=== PATIENT | female | born 1950 | race Caucasian/White ===

== ENCOUNTER → 2017-06-23 | Outpatient (CLI) | payer OTHER | LOC: FIMAGING 08:56 | PROVIDERS: ATTEND Family Medicine | DX: Z12.31 Encounter for screening mammogram for malignant neoplasm of breast (principal) | CPT/HCPCS: G0202 ==

== ENCOUNTER 2017-11-16 07:28 | Observation (INO) | payer OTHER ==
--- NOTE | 2017-11-15 08:04 | GHP ---
[f rep st] PREOP HISTORY AND PHYSICAL DATE OF ADMISSION: 11/16/2017 ADMISSION DIAGNOSIS: Osteoarthritis, right knee. PLANNED PROCEDURE: Right total knee arthroplasty. HISTORY OF PRESENT ILLNESS: The patient is a 67-year-old female, who has had longstanding, slowly wo rsening, bilateral knee pain, right slightly worse than left with varus deformities. She has recentl y lost about 110 pounds and she has been managing the knee pain with conservative therapy, including physical therapy, exercise and viscosupplementation injections. They have failed to provide relief a nd decision has been made to proceed with a total knee arthroplasty. PRIOR MEDICAL HISTORY: Obesity, depression, thyroid problems. PRIOR SURGICAL HISTORY: None. MEDICATIONS: Aripiprazole 5 mg daily, carbamazepine extended release 400 mg q.12 hours, hydrochlorot hiazide, levothyroxine, topiramate, venlafaxine. ALLERGIES: No known drug allergies. SOCIAL HISTORY: Does not smoke. Does not drink alcohol. She lives alone here in town. REVIEW OF SYSTEMS: No shortness of breath or chest pain. Otherwise, review of systems are unremarka ble. PHYSICAL EXAMINATION: VITAL SIGNS: She is 5 feet 3 inches tall, weighs 228 pounds. Blood pressure is 142/86, heart rate 78, respiratory rate 14 on room air. Alert oriented x3. HEENT: Normocephalic , atraumatic. Extraocular muscles intact. NECK: Supple. There is no lymphadenopathy. No JVD. CH EST: Clear to auscultation. CARDIOVASCULAR: Regular rate and rhythm. ABDOMEN: Soft, nontender, n ondistended. EXTREMITIES: Focusing on the right leg. She does have a slight varus deformity, it is correctable. She lacks about 10 degrees of extension. Flexes to 120 degrees. Knee is otherwise st able to varus and valgus stress testing. Calf is soft, 1+ dorsalis pedis and posterior tibial pulses . Sensation to light touch is intact to the dorsum and plantar aspect of the foot. IMAGING: X-rays, 3 views of the knee, are reviewed. They show moderate to severe tricompartment deg enerative joint disease with varus alignment. ASSESSMENT: Moderate to severe osteoarthritis, right knee with varus alignment. PLAN: I recommend proceeding with a total knee arthroplasty. The risks and benefits including posto perative infection, blood clots, stiffness and need for revision surgery in the future were all discu ssed. She understands these risks and wished to proceed. We will plan on surgery Thursday. /[id number]/MODL
[2017-11-16] MEDS ORDERED: LR 1,000 ML IV ONE (08:23)
--- NOTE | 2017-11-16 10:08 | PDHPUP ---
History & Physical Update H&P update statement: This history and physical update is based on an assessment of the patient which was completed after admission or registration (within 24 hours), but prior to the surgery/procedure. H&P update: H&P reviewed & patient examined, no change in patient's condition since H&P completed
[2017-11-16] MEDS ORDERED: THROMBIN (BOVINE) 5,000 UNIT VIAL TP ONE (10:24)
[2017-11-16] MEDS ORDERED: CALCIUM CHLORIDE 1 GM/10 ML INJ ONE (10:24)
[2017-11-16] MEDS ORDERED: ceFAZolin 1 GM/5 ML SYR ONE (10:24)
[2017-11-16] MEDS ORDERED: MIDAZOLAM 2 MG/2 ML VIAL IVP ONE (10:25)
--- NOTE | 2017-11-16 10:26 | PDANEPAE ---
ANE History of Present Illness Patient presents for R TKA ANE Past Medical History - Cardiovascular History Hx Hypertension: No Hx Arrhythmias: No Hx Chest Pain: No Hx Coronary Artery / Peripheral Vascular Disease: No Hx CHF / Valvular Disease: No Hx Palpitations: No - Pulmonary History Hx COPD: No Hx Asthma/Reactive Airway Disease: No Hx Recent Upper Respiratory Infection: No Hx Oxygen in Use at Home: No Hx Sleep Apnea: No Sleep Apnea Screening Result - Last Documented: Negative - Neurologic History Hx Cerebrovascular Accident: No Hx Seizures: Yes Hx Dementia: No Neurologic History Comment: hx of simple complex seizure disorder ~1997. Seizures s/p craniotomy. - Endocrine History Hx Diabetes: No Hypothyroid: Yes Endocrine History Comment: hypothyroid -well managed - Renal History Hx Renal Disorders: No - Liver History Hx Hepatic Disorders: No - Neurological & Psychiatric Hx Hx Neurological and Psychiatric Disorders: Yes Neurological / Psychiatric History Comment: depression- well managed - Cancer History Hx Cancer: No - Congenital Disorder History Hx Congenital Disorders: No - GI History Hx Gastrointestinal Disorders: No - Other Health History Other Health History: OA -bilat knees -R knee "bone on bone". on HCTZ for water retetion - Chronic Pain History Chronic Pain: Yes (R knee) - Surgical History Prior Surgeries: craniotomy -cyst removal. ella HAYS Review of Systems Review of Systems: - Exercise capacity METS (RN): 4 METS ANE Patient History - Allergies Allergies/Adverse Reactions: calcium carbonate [From Aspirin Regimen Stephen/Calcium] Allergy (Intermediate, Verified 10/26/17 13:59) "speediness" Penicillins Allergy (Intermediate, Verified 10/26/17 14:00) swelling - Home Medications Home medications: home medication list seen and reviewed Home Medications: ARIPiprazole [Abilify 5 mg (*)] 5 mg PO DAILY 10/26/17 [Last Taken 11/15/17] Ascorbic Acid [Vitamin C 500 mg (*)] 1,000 mg PO DAILY 10/26/17 [Last Taken 03/27] Aspirin [Aspirin 81mg (*)] 81 mg PO DAILY 10/26/17 [Last Taken 11/15/17] Cholecalciferol Vit D3 [Vitamin D3 2000 units tab (OTC)] 15,000 units PO DAILY 10/26/17 [Last Taken 11/15/17] Herbals/Supplements -Info Only 1 ea PO DAILY 10/26/17 [Last Taken 11/15/17] Hydrochlorothiazide [HCTZ (*)] 25 mg PO DAILY 10/26/17 [Last Taken 11/15/17] Levothyroxine [Synthroid 125 mcg (*)] 125 mcg PO DAILY06 10/26/17 [Last Taken ] [place]-3 Fatty Acids [Fish Oil 1000 mg (*)] 2,000 mg PO DAILY 10/26/17 [Last Taken 11/15/17] Topiramate [Topamax 100MG (*)] 100 mg PO DAILY 10/26/17 [Last Taken 11/15/17] Topiramate [Topamax 25MG (*)] 50 mg PO HS 10/26/17 [Last Taken 11/15/17] Venlafaxine Xr [Effexor Xr] 150 mg PO BID 10/26/17 [Last Taken 11/15/17] Vitamin B Complex/Folic Acid [B-Complex Tablet] 0.4 mg PO DAILY 10/26/17 [Last Taken 11/15/17] carBAMazepine ER [TEGretol XR] 400 mg PO BID 10/26/17 [Last Taken 11/15/17] - NPO status NPO Status: no food or drink >8 hours NPO Since - Liquids (Date): 11/15/17 NPO Since - Liquids (Time): 23:30 NPO Since - Solids (Date): 11/15/17 NPO Since - Solids (Time): 20:30 - Smoking Hx Smoking Status: Never smoked ANE Labs/Vital Signs - Vital Signs Blood Pressure: 160/94 Heart Rate: 84 Respiratory Rate: 18 O2 Sat (%): 93 Height: 160.02 cm Weight: 100.698 kg ANE Physical Exam - Airway Neck exam: FROM Mallampati Score: Class 2 Mouth exam: small mouth opening - Pulmonary Pulmonary: no respiratory distress - Cardiovascular Cardiovascular: regular rate and rhythym - ASA Status ASA Status: II ANE Anesthesia Plan Anesthesia Plan: spinal Regional Anesthesia: single shot NB (RBA discussed)
[2017-11-16] MEDS ORDERED: fentaNYL 100 MCG/2 ML INJ ONE (10:36)
[2017-11-16] MEDS ORDERED: PROPOFOL/EMULSION 500 MG/50 ML BOTTLE IV ONE ×3 (10:36→12:29)
[2017-11-16] MEDS ORDERED: VANCOMYCIN HCL/NORMAL SALINE 250 ML IV ONE (10:37)
[2017-11-16] MEDS ORDERED: BUPIVACAINE/EPI 0.5% 30 ML SDV ONE (10:42)
[2017-11-16] MEDS ORDERED: VANCOMYCIN 1 GM in NS 250 ML IV ONE (11:00)
[2017-11-16] MEDS ORDERED: ROPIVACAINE HCL 150 MG/30 ML INJ ONE (11:27)
[2017-11-16] MEDS ORDERED: clonIDINE 1 MG/10 ML VIAL EP ONE (11:27)
[2017-11-16] MEDS ORDERED: ONDANSETRON 4 MG/2 ML VIAL IVP PRN ×2 (13:31→13:44)
[2017-11-16] MEDS ORDERED: LACTULOSE 20 GM/30 ML UDCUP PO PRN (13:31)
[2017-11-16] MEDS ORDERED: PROMETHAZINE HCL 25 MG SUPPR PR PRN (13:31)
[2017-11-16] MEDS ORDERED: PROMETHAZINE HCL 25 MG/ML INJ IVP PRN (13:31)
[2017-11-16] MEDS ORDERED: TEMAZEPAM 15 MG CAP PO PRN (13:31)
[2017-11-16] MEDS ORDERED: CYCLOBENZAPRINE 10 MG TAB PO PRN (13:31)
[2017-11-16] MEDS ORDERED: ONDANSETRON DISINTEGRATING 4 MG TAB PO PRN (13:31)
[2017-11-16] MEDS ORDERED: BISACODYL 10 MG SUPP PR PRN (13:31)
[2017-11-16] MEDS ORDERED: MAGNESIUM HYDROXIDE 30 ML UDCUP PO PRN (13:31)
[2017-11-16] MEDS ORDERED: diphenhydrAMINE 25 MG CAP PO PRN (13:31)
[2017-11-16] MEDS ORDERED: DIPHENOXYLATE/ATROPINE LOMOTIL 1 TAB PO PRN (13:31)
--- NOTE | 2017-11-16 13:31 | POSTOPPROG ---
Post Op Note Date of Operation: 11/16/17 Surgeon: Geovanny Argueta Pharmacist Assistant: Phillip Morrow Anesthesia: Spinal Pre-op Diagnosis: OA rt knee Post-op Diagnosis: same Procedure: RT TKA Findings: tibial bone defect Inf/Abcess present in the surg proc area at time of surgery?: No EBL: 100-500 Complications: none
[2017-11-16] MEDS ORDERED: NALOXONE HCL 0.4 MG/ML INJ IVP PRN (13:44)
[2017-11-16] MEDS ORDERED: LR 500 ML IV PRN (13:44)
[2017-11-16] MEDS ORDERED: fentaNYL 100 MCG/2 ML INJ IVP PRN (13:44)
[2017-11-16] MEDS ORDERED: HYDROCODONE/APAP 5/325 TAB PO PRN (13:44)
--- NOTE | 2017-11-16 13:45 | POSTANESTH ---
Post Anesthetic Evaluation Cardiovascular Status: Similar to Pre-Op Cond Respiratory Status: Similar to Pre-op Cond. Level of Consciousness/Mental Status: Alert and Oriented Pain Control: Adequate, Prn Tx Ordered Nausea/Vomiting Control: Adequate, Prn Tx Ordered Complications Possibly Related to Anesthesia: None Noted
[2017-11-16] MEDS ORDERED: LR 1,000 ML IV SCH (14:00)
[2017-11-16] MEDS: ACETAMINOPHEN 325 MG TAB PO SCH ×3 (18:10→23:53)
[2017-11-16] MEDS: oxyCODONE IR 5 MG TAB PO PRN ×2 (18:30→21:35)
--- NOTE | 2017-11-16 19:58 | GOP ---
[f rep st] OPERATIVE REPORT DATE OF OPERATION: 11/16/2017 SURGEON: Geovanny Argueta MD DATA CAPTURE SPECIALIST: Phillip Morrow, PAC ANESTHESIA: Spinal with monitored anesthesia care. PREOPERATIVE DIAGNOSIS: Osteoarthritis, right knee with varus deformity. POSTOPERATIVE DIAGNOSIS: Osteoarthritis, right knee with varus deformity. PROCEDURE PERFORMED: Right total knee arthroplasty. FINDINGS: DESCRIPTION OF PROCEDURE: After appropriate informed consent was obtained, the patient was taken to the operating room, placed supine on the operating table. Time-out was performed. Patient was ident ified, correct side was identified, matched with radiographs available in the room. She received a g benigno of vancomycin. Following a spinal anesthetic, the right lower extremity was prepped and draped i n usual sterile fashion. Limb was exsanguinated. Tourniquet was inflated to 250 mmHg. I made a standard midline incision with medial parapatellar arthrotomy. She had severe tricompartmen t degenerative joint disease with erosion of the medial posterior aspect of the tibia. I flexed the knee up, removed osteophytes from the femur, the tibia and the patella; I was able to zak the storey la and then I used a drill, entered the femoral canal. Resected 10 mm off the distal femur after I h ad pinned my distal femoral cutting block in place. Then, using our tibial extramedullary guide, I r esected 9 mm off the lateral side of the tibia. There was still a bony defect posterolaterally, but there was some cortical bone where the tibial tray would rest. I made the decision to fill in the de fect with cement rather than an augment or . We then prepared our tibia, pinned our size [address] after I was satisfied with our rotation, used our keel punch. I then drilled to a depth of 50 mm for the long stem, to give added stability. We trialed a 9 and 11, the 11 gave us better medi olateral stability with still full extension. I then prepared the patella, resected about 10 mm off, it was 24 mm thick. Again, there was sclerosis on the lateral aspect of the patella. This was dril led with a drill to accept cement. We sized the patella to a size 29, drilled our keel punches. We then irrigated the knee with pulsatile lavage. On the back table, cement was mixed. We cemented our tibia followed by femur and our patella. A tri al 11 poly was placed back in, excess cement was removed with curettes and rongeurs. When the excess cement had dried, again, I checked the stability of the knee, I was satisfied with that. The 11 michael y was removed and we placed the final 11 poly, tapped it in place. The wound was irrigated a final t aydee. The extensor mechanism was closed with 0 Vicryl. Skin was closed with 2-0 Vicryl. Skin was cl osed with dafne. I instilled 10 mL of PRP over the cut bone surfaces as well as 20 mL of 0.5% Ty seb with epinephrine into the knee joint. Sterile dressing was applied. The patient was awakened f rom anesthesia, taken to recovery room in satisfactory condition. There were no immediate intraopera tive complications. IMPLANTS USED: Gorin size 3 posterior stabilized femur, tibia with a 50 mm stem, 11 mm poly, and a 29 mm asymmetric patella, all cemented. COMPLICATIONS: None. DRAINS: None. TOTAL TOURNIQUET TIME: 96 minutes at 250 mmHg. HISTORY: The patient is a 67-year-old female, with severe varus deformity and severe osteoarthritis in all 3 compartments of the knee. Decision was made to proceed with a total knee arthroplasty. /[id number]/MODL
[2017-11-16] MEDS: carBAMazepine ER 400 MG TAB PO SCH (21:04)
[2017-11-16] MEDS: TOPIRAMATE 100 MG TAB PO SCH (21:04)
[2017-11-16] MEDS: SENNOSIDES/DOCUSATE SODIUM TAB PO SCH (21:05)
[2017-11-16] MEDS: VENLAFAXINE XR 150 MG CAP PO SCH (21:05)
[2017-11-16] MEDS: FAMOTIDINE 20 MG TAB PO SCH (21:05)
[2017-11-16] MEDS: ASPIRIN 325 MG TAB PO SCH (21:05)
[2017-11-16] MEDS: POLYETHYLENE GLYCOL 3350 17 GM PKT PO PRN (21:35)
[2017-11-16] MEDS ORDERED: VANCOMYCIN 1 GM in D5W 250 ML IV ONE (23:00)
[2017-11-17] MEDS: ACETAMINOPHEN 325 MG TAB PO SCH ×4 (05:20→23:24)
[2017-11-17] MEDS: LEVOTHYROXINE 125 MCG TAB PO SCH (05:20)
[2017-11-17] MEDS: oxyCODONE IR 5 MG TAB PO PRN ×2 (06:22→10:12)
[2017-11-17] MEDS ORDERED: VITAMIN B COMPLEX PO SCH (09:00)
[2017-11-17] MEDS ORDERED: FOLIC ACID PO SCH (09:00)
[2017-11-17] MEDS: carBAMazepine ER 400 MG TAB PO SCH ×2 (10:01→20:31)
[2017-11-17] MEDS: VITAMIN B COMPLEX 1 EA CAP/TAB PO SCH (10:01)
[2017-11-17] MEDS: ASCORBIC ACID 500 MG TAB PO SCH (10:02)
[2017-11-17] MEDS: VENLAFAXINE XR 150 MG CAP PO SCH ×2 (10:02→20:31)
[2017-11-17] MEDS: SENNOSIDES/DOCUSATE SODIUM TAB PO SCH ×2 (10:02→20:31)
[2017-11-17] MEDS: FAMOTIDINE 20 MG TAB PO SCH ×2 (10:02→20:31)
[2017-11-17] MEDS: TOPIRAMATE 100 MG TAB PO SCH ×2 (10:02→20:31)
[2017-11-17] MEDS: ASPIRIN 325 MG TAB PO SCH (10:03)
[2017-11-17] MEDS: ARIPiprazole 5 MG TAB PO SCH (10:03)
[2017-11-17] MEDS: HYDROCHLOROTHIAZIDE 25 MG TAB PO SCH (10:14)
[2017-11-17] MEDS: CHOLECALCIFEROL VIT D3 2,000 UNITS TAB/CAP PO SCH (10:14)
--- NOTE | 2017-11-17 12:07 | SOAPPROG ---
SOAP Progress Note Assessment/Plan: Assessment: Plan: - orthopnea - likely 2 to meds, will monitor, vitals are normal, may need to check hct - R tka - doing well, con't PT 11/17/17 12:06 Subjective: c/o dizziness this AM, pain moderate, Objective: Vital Signs Temp Pulse Resp BP Pulse Ox 37.0 C 84 16 142/75 H 94 11/17/17 11:58 11/17/17 11:58 11/17/17 11:58 11/17/17 10:58 11/17/17 11:58 Laboratory Results 11/17/17 05:19 11/16/17 11/17/17 11/18/17 05:59 05:59 05:59 Intake Total 3035 Output Total 800 800 Balance 2235 -800 vitals wnl, pupils normal, dressing cdi, calf nt, nvi, no dvt - Time Spent With Patient Time Spent With Patient: 15 - Pending Discharge Pending Discharge Within 24 Hours: No Pending Discharge Within 48 Hours: No ICD10 Worksheet Patient Problems: Problems Problem Status Onset Arthritis of right knee Acute - ICD10 Problem Qualifiers (1) Arthritis of right knee
--- NOTE | 2017-11-17 15:54 | ASMTCMCOM ---
CM Note CM Note Notes: Reviewed patient's chart/therapy notes, recommending SNF at this time. Met with patient regarding discharge plan of care. Discussed SNF options versus HHC. Patient was hoping to discharge to [facility], [address] [place] [place] [address], with HH but is open to SNF if that is what is being recommended. Patient's #1 choice is the [facility]. Referral sent, spoke with admissions who will submit for insurance auth now. Await authorization before discharge. SW CM to assess patient and complete PASRR (depression). CM will follow. Current D/C Plan: [facility] pending auth. Date Signed: 11/17/2017 03:53 PM Electronically Signed By:Abby Fabian RN
[2017-11-18] MEDS: LEVOTHYROXINE 125 MCG TAB PO SCH (05:28)
[2017-11-18] MEDS: ACETAMINOPHEN 325 MG TAB PO SCH ×3 (05:28→17:24)
--- NOTE | 2017-11-18 08:46 | SOAPPROG ---
SOAP Progress Note Assessment/Plan: Assessment: Plan: 11/18/17 08:45 POD#2 RT TKA PT/OT ASA dvt proph Subjective: feeling better today, less pain slept o/n Objective: Vital Signs Temp Pulse Resp BP Pulse Ox 37.0 C 90 16 119/64 91 L 11/18/17 08:00 11/18/17 08:00 11/18/17 08:00 11/18/17 08:00 11/18/17 08:00 Laboratory Results 11/18/17 04:44 11/17/17 11/18/17 11/19/17 05:59 05:59 05:59 Intake Total 3035 250 Output Total 800 1700 Balance 2235 -1450 dressing dry calf soft 5/5 df/pf ICD10 Worksheet Patient Problems: Problems Problem Status Onset Arthritis of right knee Acute
[2017-11-18] MEDS: ARIPiprazole 5 MG TAB PO SCH (08:51)
[2017-11-18] MEDS: carBAMazepine ER 400 MG TAB PO SCH ×2 (08:51→21:16)
[2017-11-18] MEDS: TOPIRAMATE 100 MG TAB PO SCH ×2 (08:51→21:15)
[2017-11-18] MEDS: ASCORBIC ACID 500 MG TAB PO SCH (08:51)
[2017-11-18] MEDS: FAMOTIDINE 20 MG TAB PO SCH ×2 (08:52→21:14)
[2017-11-18] MEDS: HYDROCHLOROTHIAZIDE 25 MG TAB PO SCH (08:52)
[2017-11-18] MEDS: ASPIRIN 325 MG TAB PO SCH (08:53)
[2017-11-18] MEDS: SENNOSIDES/DOCUSATE SODIUM TAB PO SCH ×2 (08:53→21:14)
[2017-11-18] MEDS: VENLAFAXINE XR 150 MG CAP PO SCH ×2 (08:53→21:14)
[2017-11-18] MEDS: POLYETHYLENE GLYCOL 3350 17 GM PKT PO PRN (08:54)
[2017-11-18] MEDS: CHOLECALCIFEROL VIT D3 2,000 UNITS TAB/CAP PO SCH (08:55)
[2017-11-18] MEDS: VITAMIN B COMPLEX 1 EA CAP/TAB PO SCH (15:23)
[2017-11-18] MEDS ORDERED: NS 500 ML IV ONE (16:50)
[2017-11-19] MEDS: ACETAMINOPHEN 325 MG TAB PO SCH ×4 (02:33→15:58)
[2017-11-19] MEDS: LEVOTHYROXINE 125 MCG TAB PO SCH (05:23)
[2017-11-19 08:06] VITALS: BP 106/57
--- NOTE | 2017-11-19 09:42 | SOAPPROG ---
SOJOY Progress Note Assessment/Plan: Assessment: Plan: - doing well, d/c home 11/17/17 12:06 11/19/17 09:42 Subjective: Doing well, dizziness as improved, pain is minimal, she would like to d/c today Objective: Vital Signs Temp Pulse Resp BP Pulse Ox 37.0 C 81 16 106/57 L 95 11/19/17 08:00 11/19/17 08:00 11/19/17 08:00 11/19/17 08:00 11/19/17 08:00 Laboratory Results 11/18/17 04:44 11/18/17 11/19/17 11/20/17 05:59 05:59 05:59 Intake Total 250 1400 Output Total 1700 300 Balance -1450 1100 Dressing CDI, small fracture blister medially, calf NT, neg homman's, nvi - Time Spent With Patient Time Spent With Patient: 15 - Pending Discharge Pending Discharge Within 24 Hours: No Pending Discharge Within 48 Hours: No ICD10 Worksheet Patient Problems: Problems Problem Status Onset Arthritis of right knee Acute - ICD10 Problem Qualifiers (1) Arthritis of right knee
[2017-11-19] MEDS: CHOLECALCIFEROL VIT D3 2,000 UNITS TAB/CAP PO SCH (09:57)
[2017-11-19] MEDS: ASCORBIC ACID 500 MG TAB PO SCH (09:58)
[2017-11-19] MEDS: VITAMIN B COMPLEX 1 EA CAP/TAB PO SCH (09:59)
[2017-11-19] MEDS: FAMOTIDINE 20 MG TAB PO SCH (09:59)
[2017-11-19] MEDS: VENLAFAXINE XR 150 MG CAP PO SCH (09:59)
[2017-11-19] MEDS: ARIPiprazole 5 MG TAB PO SCH (10:00)
[2017-11-19] MEDS: SENNOSIDES/DOCUSATE SODIUM TAB PO SCH (10:00)
[2017-11-19] MEDS: HYDROCHLOROTHIAZIDE 25 MG TAB PO SCH (10:00)
[2017-11-19] MEDS: ASPIRIN 325 MG TAB PO SCH (10:02)
[2017-11-19] MEDS: TOPIRAMATE 100 MG TAB PO SCH (10:02)
[2017-11-19] MEDS: carBAMazepine ER 400 MG TAB PO SCH (10:02)
--- NOTE | 2017-11-19 15:33 | PDIAF ---
- Diagnosis Code Status: Full Code - Medication Management Discharge Medications: Medications to Continue on Transfer ARIPiprazole [Abilify 5 mg (*)] 5 mg PO DAILY 10/26/17 [Last Taken 11/15/17] Ascorbic Acid [Vitamin C 500 mg (*)] 1,000 mg PO DAILY 10/26/17 [Last Taken 03/27] Cholecalciferol Vit D3 [Vitamin D3 2000 units tab (OTC)] 15,000 units PO DAILY 10/26/17 [Last Taken 11/15/17] Herbals/Supplements -Info Only 1 ea PO DAILY 10/26/17 [Last Taken 11/15/17] Hydrochlorothiazide [HCTZ (*)] 25 mg PO DAILY 10/26/17 [Last Taken 11/15/17] Levothyroxine [Synthroid 125 mcg (*)] 125 mcg PO DAILY06 10/26/17 [Last Taken ] [place]-3 Fatty Acids [Fish Oil 1000 mg (*)] 2,000 mg PO DAILY 10/26/17 [Last Taken 11/15/17] Topiramate [Topamax 100MG (*)] 100 mg PO DAILY 10/26/17 [Last Taken 11/15/17] Topiramate [Topamax 25MG (*)] 50 mg PO HS 10/26/17 [Last Taken 11/15/17] Venlafaxine Xr [Effexor Xr] 150 mg PO BID 10/26/17 [Last Taken 11/15/17] Vitamin B Complex/Folic Acid [B-Complex Tablet] 0.4 mg PO DAILY 10/26/17 [Last Taken 11/15/17] carBAMazepine ER [TEGretol XR] 400 mg PO BID 10/26/17 [Last Taken 11/15/17] Aspirin [Aspirin 325 mg (*)] 325 mg PO DAILY tab 11/19/17 [Last Taken Unknown] oxyCODONE IR [Oxycodone Ir (*)] 5 - 10 mg PO Q3HRS PRN tab 11/19/17 [Last Taken Unknown] Discharge Medications: Refer to the Discharge Home Medication list for PRN reason. - Orders Diet Recommendation: no restrictions on diet, ADA 1800 consistent carb - Follow Up Care Current Providers and Referrals: Constance Carter MD [Primary Care Provider] -
--- NOTE | 2017-11-19 15:39 | ASMTCMCOM ---
CM Note CM Note Notes: Insurance authorization is in from [place] for [facility]. PT/OT continue to rec SNF and pt adamantly declines SNF d/c. Met w pt and her friend Sarah, [facility] Sarah will be able to provide supervision. Pt declines home health care PT, reports she has outpatient PT scheduled for Thursday11/23/17. Pt is at risk of falling and pt states he does not plan on falling but if she does Sarah has big burly male neighbors who will "be glad" to assist her. Pt is informed she can call MD office for home health care if she changes her mind and to contact insurance if she changes her mind about SNF. Date Signed: 11/19/2017 03:38 PM Electronically Signed By:MELLISSA Ribeiro
--- NOTE | 2017-11-21 14:42 | ASDISCHSUM ---
Discharge Information Plan Status:Home with No Needs Medically Cleared to Leave: Discharge Date:11/19/2017 04:25 PM CM D/C Disposition:Home, Routine, Self-Care ADT D/C Disposition:Home, Routine, Self-Care Projected Discharge Date:11/18/2017 11:00 AM Transportation at D/C:Friend Discharge Delay Reason: Follow-Up Date:11/18/2017 11:00 AM Discharge Slot: Final Diagnosis: Placement Information Referral Type:*[facility]NF Referral ID:[id number] Provider Name: Address 1: Phone Number: Address 2: Fax Number: City: Selection Factors: State: Patient Contact Information Contact Name:ARLENE Relationship: Address: Home Phone: Work Phone: City: Alternate Phone: [facility] Code: Email: Financial Information Financial Class:Medicare Advantage Plans Primary Plan Desc:[employer] MEDICARE ADV Primary Plan Number:[id number] Secondary Plan Desc: Secondary Plan Number: Assessment Information LACE LACE Length of stay for Answers: 3 days current admission Acuity / Level of Answers: Yes Care: Did the patient have an inpatient admission? Comorbidities - select Answers: Other Notes: Hx seizure disorder all that apply # of Emergency department Answers: 0 visits in the last 6 months Social determinants Answers: Mental health diagnosis (anxiety, depression, pers onality disorders, etc.) Score: 10 Date Signed: 11/19/2017 04:26 PM Electronically Signed By:MELLISSA Ribeiro [facility] CM Progress Note CM Note CM Note Notes: Reviewed patient's chart/therapy notes, recommending SNF at this time. Met with patient regarding discharge plan of care. Discussed SNF options versus HHC. Patient was hoping to discharge to friend's home, [address] [place] [address], with [facility] but is open to SNF if that is what is being recommended. Patient's #1 choice is the [facility]. Referral sent, spoke with admissions who will submit for insurance auth now. Await authorization before discharge. SW CM to assess patient and complete PASRR (depression). CM will follow. Current D/C Plan: [facility] pending auth. Date Signed: 11/17/2017 03:53 PM Electronically Signed By:Abby Fabian RN [facility] CM Progress Note CM Note CM Note Notes: Insurance authorization is in from [place] for [facility] [place] [facility]. PT/OT continue to rec SNF and pt adamantly declines SNF d/c. Met w pt and her friend Sarah, pt will stay at [facility] at d/c. Sarah will be able to provide supervision. Pt declines home health care PT, reports she has outpatient PT scheduled for Thursday11/23/17. Pt is at risk of falling and pt states he does not plan on falling but if she does Sarah has big burly male neighbors who will "be glad" to assist her. Pt is informed she can call MD office for home health care if she changes her mind and to contact insurance if she changes her mind about SNF. Date Signed: 11/19/2017 03:38 PM Electronically Signed By:MELLISSA Ribeiro Intervention Information Intervention Type:*PITT-Signed Date of Service:11/17/2017 11:22 AM Patient Type:Observation Staff Member:DOMINICK Fabian Janessa Hours: Discipline: Severity: Comment: Intervention Type:*IM-Signed Date of Service:11/19/2017 04:04 PM Patient Type:Observation Staff Member:Elizabeth Coppola Hours: Discipline: Severity: Comment:
== END 2017-11-19 16:25 | disposition home or self-care (01) ==
LOC: F3N 07:28 → PREINTOOBSV 14:08 → F3N 15:18
PROVIDERS: ADMIT Orthopaedic Surgery; ATTEND Orthopaedic Surgery
PROC: 0SRC0J9 Replacement of Right Knee Joint with Synthetic Substitute, Cemented, Open Approach (ICD-10-PCS; principal; 2017-11-16 09:45)
PROC: 3E0U0GB Introduction of Recombinant Bone Morphogenetic Protein into Joints, Open Approach (ICD-10-PCS; principal; 2017-11-16 09:45)
DX: M17.11 Unilateral primary osteoarthritis, right knee (principal); M21.161 Varus deformity, not elsewhere classified, right knee; E66.9 Obesity, unspecified; Z68.39 Body mass index [BMI] 39.0-39.9, adult; E03.9 Hypothyroidism, unspecified; F32.9 Major depressive disorder, single episode, unspecified; Z88.0 Allergy status to penicillin
CPT/HCPCS: 0232T; 27447; 73560; 88311; 97110; 97116; 97162; 97166; 97530; 97535; C1713; C1776; G0378; J0735; J2250; J2704; J2795; J3010; J3370

== ENCOUNTER 2018-05-17 10:02 | Inpatient (IN) | payer OTHER ==
--- NOTE | 2018-05-16 07:48 | GHP ---
DATE OF ADMISSION: 05/17/2018 DATE OF PLANNED PROCEDURE: 05/17/2018. PREOPERATIVE DIAGNOSIS: Osteoarthritis of left knee. PLANNED PROCEDURE: Left total knee arthroplasty. HISTORY: The patient is a 67-year-old female, who has undergone a right total knee arthroplasty by m yself back in November. She has done very well with this and is now ready to proceed with the left side . PRIOR MEDICAL HISTORY: Obesity, depression, hypothyroidism. PRIOR SURGICAL HISTORY: Right total knee arthroplasty in November 2017. MEDICATIONS: Carbamazepine extended release 400 mg, hydrochlorothiazide 25 mg, levothyroxine 150 mcg , topiramate 50 mg, venlafaxine extended release 150 mg. ALLERGIES: Penicillin gives her facial swelling. SOCIAL HISTORY: Does not smoke. Does not drink alcohol. Lives here in town. REVIEW OF SYSTEMS: No shortness of breath or chest pain. Otherwise, review of systems is unremarkab le. PHYSICAL EXAM: 67-year-old female. VITAL SIGNS: She is 5 feet 3 inches tall, weighs 220 pounds. B lood pressure is 135/78, heart rate 74, respiratory rate is 16 on room air. GENERAL: Alert and orie nted x3. HEENT: Normocephalic, atraumatic. Extraocular muscles intact. NECK: Supple. There is n o lymphadenopathy. No JVD. CHEST: Clear to auscultation. CARDIOVASCULAR: Regular rate and rhythm . ABDOMEN: Soft, nontender, nondistended. There is no hepatosplenomegaly. EXTREMITIES: Left knee shows varus deformity. She has from 10 degrees of full extension to 110 degrees of flexion. The va latha deformity is passively correctable to straight. She is stable to both varus and valgus stress te sting. 1+ Shelli with firm endpoint. Negative posterior drawer. Calf is soft. 1+ dorsalis pedis, posterior tibial pulses. 5/5 ankle dorsiflexion, plantar flexion strength. IMAGING: X-rays: 3 views of the knee are reviewed. It shows severe tricompartmental osteoarthritis with varus deformity and erosion of the medial tibia. ASSESSMENT: Severe tricompartment osteoarthritis left knee with varus deformity. PLAN: We will proceed with a total knee arthroplasty. Risks and benefits including postoperative st iffness were discussed. She understands these risks and wished to proceed. We also discussed blood clots. She will be on aspirin postoperatively for DVT prophylaxis and early mobilization. Preoperat ade paperwork was completed. We will plan on surgery Thursday at the hospital. /[id number]/MODL
[2018-05-17] MEDS ORDERED: CLINDAMYCIN 900 MG/DEXTROSE 50 ML IV ONE (10:44)
[2018-05-17] MEDS ORDERED: LR 1,000 ML IV ONE (10:46)
[2018-05-17] MEDS ORDERED: THROMBIN (BOVINE) 5,000 UNIT VIAL TP ONE ×2 (10:51)
[2018-05-17] MEDS ORDERED: CALCIUM CHLORIDE 1 GM/10 ML INJ ONE (10:52)
[2018-05-17] MEDS ORDERED: ceFAZolin 1 GM/5 ML SYR ONE (10:52)
[2018-05-17] MEDS ORDERED: fentaNYL 250 MCG/5 ML INJ ONE (11:51)
[2018-05-17] MEDS ORDERED: PROPOFOL/EMULSION 500 MG/50 ML BOTTLE IV ONE (11:51)
[2018-05-17] MEDS ORDERED: BUPIVACAINE/DEXTROSE 7.5MG/ML 2 ML SPINAL AMP SP ONE (11:55)
[2018-05-17] MEDS ORDERED: MIDAZOLAM 2 MG/2 ML VIAL IVP ONE (12:02)
[2018-05-17] MEDS ORDERED: MIDAZOLAM 2 MG/2 ML VIAL ONE (12:03)
--- NOTE | 2018-05-17 12:04 | PDANEPAE ---
ANE History of Present Illness 67 year old female for Knee arthroplasty. History of seizures. ANE Past Medical History - Cardiovascular History Hx Hypertension: No Hx Arrhythmias: No Hx Chest Pain: No Hx Coronary Artery / Peripheral Vascular Disease: No Hx CHF / Valvular Disease: No Hx Palpitations: No - Pulmonary History Hx COPD: No Hx Asthma/Reactive Airway Disease: No Hx Recent Upper Respiratory Infection: No Hx Oxygen in Use at Home: No Hx Sleep Apnea: No Sleep Apnea Screening Result - Last Documented: Negative - Neurologic History Hx Cerebrovascular Accident: No Hx Seizures: Yes Hx Dementia: No Neurologic History Comment: hx of simple complex seizure disorder ~1997. Seizures s/p craniotomy. - Endocrine History Hx Diabetes: No Endocrine History Comment: hypothyroid -well managed - Renal History Hx Renal Disorders: No - Liver History Hx Hepatic Disorders: No - Neurological & Psychiatric Hx Hx Neurological and Psychiatric Disorders: Yes Neurological / Psychiatric History Comment: depression- well managed - Cancer History Hx Cancer: No - Congenital Disorder History Hx Congenital Disorders: No - GI History Hx Gastrointestinal Disorders: No - Other Health History Other Health History: OA -bilat knees -R knee "bone on bone". on HCTZ for water retetion - Chronic Pain History Chronic Pain: Yes (LT KNEE) - Surgical History Prior Surgeries: RT TOTAL KNEE 11/2017. craniotomy -cyst removal. ella HAYS Review of Systems Review of systems is: negative Review of Systems: - Exercise capacity METS (RN): 4 METS ANE Patient History - Allergies Allergies/Adverse Reactions: Penicillins Allergy (Verified 04/30/18 15:13) SWELLING - Home Medications Home Medications: ARIPiprazole [Abilify 5 mg (*)] 5 mg PO DAILY 10/26/17 [Last Taken 05/16/18] Ascorbic Acid [Vitamin C 500 mg (*)] 1,000 mg PO DAILY 10/26/17 [Last Taken 01/25] Herbals/Supplements -Info Only 1 ea PO DAILY 10/26/17 [Last Taken 05/15/18] Hydrochlorothiazide [HCTZ (*)] 25 mg PO DAILY 10/26/17 [Last Taken 05/17/18] Topiramate [Topamax 100MG (*)] 100 mg PO DAILY 10/26/17 [Last Taken 05/16/18] Topiramate [Topamax 25MG (*)] 50 mg PO HS 10/26/17 [Last Taken 05/16/18] Venlafaxine Xr [Effexor Xr] 150 mg PO BID 10/26/17 [Last Taken 05/16/18] carBAMazepine ER [TEGretol XR] 400 mg PO BID 10/26/17 [Last Taken 05/16/18] Calcium Carbonate [Oyster Shell Calcium 500 mg (*)] 500 mg PO DAILY 04/21/18 [ Last Taken 05/15/18] Levothyroxine [Synthroid 150 mcg (*)] 150 mcg PO DAILY06 04/21/18 [Last Taken 04:00] - NPO status NPO Since - Liquids (Date): 05/17/18 NPO Since - Liquids (Time): 04:00 NPO Since - Solids (Date): 05/16/18 NPO Since - Solids (Time): 21:00 - Smoking Hx Smoking Status: Never smoked ANE Labs/Vital Signs - Vital Signs Blood Pressure: 151/94 Heart Rate: 73 Respiratory Rate: 16 O2 Sat (%): 92 Height: 160.02 cm Weight: 104.326 kg ANE Physical Exam - Airway Neck exam: FROM Mallampati Score: Class 2 Mouth exam: normal dental/mouth exam - Pulmonary Pulmonary: no respiratory distress - Cardiovascular Cardiovascular: regular rate and rhythym - ASA Status ASA Status: II ANE Anesthesia Plan Anesthesia Plan: spinal
[2018-05-17] MEDS ORDERED: BUPIVACAINE/EPI 0.5% 30 ML SDV ONE (12:47)
[2018-05-17] MEDS ORDERED: LABETALOL HCL 5 MG/ML 20 ML MDV IVP PRN (13:27)
[2018-05-17] MEDS ORDERED: ALBUTEROL 3 ML DEYVIAL IH PRN (13:27)
[2018-05-17] MEDS ORDERED: DEXAMETHASONE 4 MG/ML VIAL IVP PRN (13:27)
[2018-05-17] MEDS ORDERED: LR 500 ML IV PRN (13:27)
[2018-05-17] MEDS ORDERED: PROMETHAZINE HCL 25 MG/ML INJ IVP PRN (13:27)
[2018-05-17] MEDS ORDERED: HYDROCODONE/APAP 5/325 TAB PO PRN (13:27)
[2018-05-17] MEDS ORDERED: NALOXONE HCL 0.4 MG/ML INJ IVP PRN ×2 (13:27→16:00)
[2018-05-17] MEDS ORDERED: fentaNYL 100 MCG/2 ML INJ IVP PRN (13:27)
[2018-05-17] MEDS ORDERED: ONDANSETRON 4 MG/2 ML VIAL IVP PRN ×3 (13:27→16:00)
[2018-05-17] MEDS ORDERED: oxyCODONE IR 5 MG TAB PO PRN (13:27)
[2018-05-17] MEDS ORDERED: LACTULOSE 20 GM/30 ML UDCUP PO PRN (14:16)
[2018-05-17] MEDS ORDERED: DIPHENOXYLATE/ATROPINE LOMOTIL 1 TAB PO PRN (14:16)
[2018-05-17] MEDS ORDERED: CYCLOBENZAPRINE 10 MG TAB PO PRN (14:16)
[2018-05-17] MEDS ORDERED: POLYETHYLENE GLYCOL 3350 17 GM PKT PO PRN (14:16)
[2018-05-17] MEDS ORDERED: MAGNESIUM HYDROXIDE 30 ML UDCUP PO PRN (14:16)
[2018-05-17] MEDS ORDERED: BISACODYL 10 MG SUPP PR PRN (14:16)
[2018-05-17] MEDS ORDERED: ONDANSETRON DISINTEGRATING 4 MG TAB PO PRN (14:16)
--- NOTE | 2018-05-17 14:16 | POSTOPPROG ---
Post Op Note Date of Operation: 05/17/18 Surgeon: Geovanny Argueta Multimedia Manager: Colleen Mendez PA-C Anesthesia: GET(General Endotracheal), Spinal Pre-op Diagnosis: Left knee osteoarthritis Post-op Diagnosis: Left knee osteoarthritis Procedure: Left total knee arthroplasty Inf/Abcess present in the surg proc area at time of surgery?: No Depth: Deep Incisional (Fascial) EBL: Minimal
[2018-05-17] MEDS ORDERED: BUPIVACAINE 0.5% 30 ML SDV ONE (14:17)
[2018-05-17] MEDS ORDERED: LR 1,000 ML IV SCH (14:30)
--- NOTE | 2018-05-17 14:55 | POSTANESTH ---
Post Anesthetic Evaluation Cardiovascular Status: Normal, Stable Respiratory Status: Normal, Stable Level of Consciousness/Mental Status: Can Participate in Eval Pain Control: Adequate, Prn Tx Ordered Nausea/Vomiting Control: Adequate, Prn Tx Ordered Complications Possibly Related to Anesthesia: None Noted
[2018-05-17] MEDS ORDERED: RN MESSAGE:REGARDING ANALGESIC ORDERING DR MISC SCH (16:00)
[2018-05-17] MEDS ORDERED: METOCLOPRAMIDE 10 MG/2 ML VIAL IVP PRN (16:00)
--- NOTE | 2018-05-17 16:53 | GOP ---
DATE OF OPERATION: 05/17/2018 SURGEON: Geovanny Argueta MD CTE TEACHER: Colleen Mendez PA-C ANESTHESIA: Spinal. ANESTHESIOLOGIST: Dr. Martinez. PREOPERATIVE DIAGNOSIS: Osteoarthritis left knee with varus deformity. POSTOPERATIVE DIAGNOSIS: Osteoarthritis left knee with varus deformity. PROCEDURE PERFORMED: Left total knee arthroplasty, cemented. FINDINGS: INDICATIONS: The patient is a 67-year-old female who has had longstanding worsening knee pain and v arus deformity. We did a right total knee arthroplasty in November. She has done very well with that, an d now she returns today for the left total knee arthroplasty. DESCRIPTION OF PROCEDURE: After appropriate informed consent was obtained, the patient was taken to the operating room, placed supine on the operating table. Time-out was performed. Patient was identif ied, correct site was identified. Following a spinal anesthetic, patient was positioned supine with a ll bony prominences well padded. Left lower extremity was prepped and draped in usual sterile fashion . I exsanguinated the limb, inflated the tourniquet to 250 mmHg. Total tourniquet time was 87 minutes . I made a standard midline incision with a medial parapatellar arthrotomy. Patella was everted. There was severe osteoarthritis in all 3 compartments with bone loss in the posterior medial tibia. Remaini ng ACL, PCL were excised, as was the medial lateral meniscus. The knee was flexed up. Patella was dori rted. Using a drill, we entered the femoral canal and I resected 10 mm off the distal femur after I h ad pinned the cutting block in place. Then, using our tibial extramedullary guide, I resected 9 mm of f the lateral side. This still left a small posterior defect on the posterior medial aspect of the ti zayda. Using our spacer block, she had good extension, good medial and lateral stability. Then sized he r femur to a size 3 and pinned our 4-in-1 cutting block and made our distal femoral cuts. We then pin lorraine our box cutting guide in place and resected the box. Then turned our attention to the tibia. A size 3 gave good AP coverage. She had a little bone left on the medial side, but the size 4 overhung AP and went back to the 3, pinned it in place. We then tria led an 11 poly with good extension, good mediolateral stability. The femoral trial and poly was remov ed, used our drill and our keel punch and prepared our tibia. That trial was then removed. Then turned our attention to the patella. It measured 24 mm thick. I resected 10 mm off the patella. This sized to a size 32. Drilled our lug holes. Trial fit nice and flush. All the trial implants were removed. Pulsatile irrigation was used to irrigate the bone ends. Cement was mixed on the back table . We then cemented a tibia, followed by a femur, Excess cement was removed with curettes. In the garza lla, placed our 11 mm poly, clicked it in place. Held the knee out in full extension while the cement cured. Remainder of the cement was removed. Wound was irrigated a final time. Extensor mechanism was closed with 0 Vicryl and I placed 5 mL of SD P beneath and 5 mL of PRP on top of the extensor tendon repair. I instilled 30 mL of 0.5% Marcaine wi th epinephrine into the knee joint for postoperative analgesia. Superficial layer was closed with 2-0 Vicryl. Skin was closed with a Quill subcuticular stitch. Steri-Strips were applied to the skin. Sof t dressing was applied. Patient was awakened from anesthesia and taken to recovery room in satisfacto ry condition. There were no intraoperative complications. Colleen Mendez's assistance was required through out the entire case. IMPLANTS USED: [place] posterior stabilized size 3 femur cemented, size 3 tibia, universal base plat e, 11 mm poly, and a 32 mm cemented patella. COMPLICATIONS: None. DRAINS: None. TOTAL TOURNIQUET TIME: 1 hour and 15 minutes. /[id number]/MODL
[2018-05-17] MEDS: RN MESSAGE:DATE/TIME OF ADMIN MISC SCH (18:12)
[2018-05-17] MEDS: VENLAFAXINE XR 150 MG CAP PO SCH (20:37)
[2018-05-17] MEDS: SENNOSIDES/DOCUSATE SODIUM TAB PO SCH (20:37)
[2018-05-17] MEDS: ASPIRIN 325 MG TAB PO SCH (20:37)
[2018-05-17] MEDS: carBAMazepine ER 400 MG TAB PO SCH (20:37)
[2018-05-17] MEDS: FAMOTIDINE 20 MG TAB PO SCH (20:38)
[2018-05-17] MEDS: CLINDAMYCIN 600 MG/DEXTROSE 50 ML IV SCH (20:38)
[2018-05-17] MEDS: TOPIRAMATE 25 MG TAB PO SCH (20:38)
[2018-05-17] MEDS ORDERED: traMADol 50 MG TAB PO PRN (21:48)
[2018-05-17] MEDS: oxyCODONE IR 5 MG TAB PO PRN (21:56)
[2018-05-17] MEDS: ACETAMINOPHEN 325 MG TAB PO SCH (21:56)
[2018-05-18] MEDS: CLINDAMYCIN 600 MG/DEXTROSE 50 ML IV SCH (03:32)
[2018-05-18] MEDS: oxyCODONE IR 5 MG TAB PO PRN ×4 (03:49→21:40)
[2018-05-18] MEDS: LEVOTHYROXINE 150 MCG TAB PO SCH (05:29)
[2018-05-18] MEDS: HYDROmorphone HCL 0.5 MG/0.5 ML SYR IVP PRN ×2 (05:35→08:31)
[2018-05-18] MEDS: RN MESSAGE:DATE/TIME OF ADMIN MISC SCH ×2 (06:04→15:24)
[2018-05-18] MEDS: KETOROLAC 15 MG/1 ML SDV IVP PRN (08:37)
[2018-05-18] MEDS: ACETAMINOPHEN 325 MG TAB PO SCH ×3 (08:40→21:41)
[2018-05-18] MEDS: SENNOSIDES/DOCUSATE SODIUM TAB PO SCH ×2 (08:41→20:49)
[2018-05-18] MEDS: ASCORBIC ACID 500 MG TAB PO SCH (08:42)
[2018-05-18] MEDS: ASPIRIN 325 MG TAB PO SCH (08:42)
[2018-05-18] MEDS: HYDROCHLOROTHIAZIDE 25 MG TAB PO SCH (08:42)
[2018-05-18] MEDS: carBAMazepine ER 400 MG TAB PO SCH ×2 (08:43→20:49)
[2018-05-18] MEDS: FAMOTIDINE 20 MG TAB PO SCH ×2 (08:43→20:49)
[2018-05-18] MEDS: ARIPiprazole 5 MG TAB PO SCH (08:44)
[2018-05-18] MEDS: CALCIUM CARBONATE 500 MG TAB PO SCH (08:44)
[2018-05-18] MEDS: VENLAFAXINE XR 150 MG CAP PO SCH ×2 (08:44→20:49)
[2018-05-18] MEDS: TOPIRAMATE 100 MG TAB PO SCH (08:44)
[2018-05-18] MEDS ORDERED: Herbals/Supplements -Info Only PO SCH (09:00)
--- NOTE | 2018-05-18 13:14 | SOAPPROG ---
SOAP Progress Note Assessment/Plan: Assessment: Lupe is now POD#1 s/p LTKA. She reports she is having moderate pain which is controlled with pain medication. PE: Dressing is clean and dry. Extensor mechanism is intact. NV Intact LLE. Calf is soft to compression without pain. Plan:She will work with PT/OT tomorrow AM. Plan is for her to be discharged home tomorrow pending therapy. Prescription for pain medication is in chart. Aspiring 325mg x 21 days post op. Follow up in 10-14 days for repeat evaluation and wound check. 05/18/18 13:12 05/18/18 13:20 Objective: Vital Signs Temp Pulse Resp BP Pulse Ox 36.8 C 89 16 135/83 H 94 05/18/18 11:13 05/18/18 11:13 05/18/18 11:13 05/18/18 11:13 05/18/18 11:13 Laboratory Results 05/18/18 04:28 05/17/18 05/18/18 05/19/18 05:59 05:59 05:59 Intake Total 1032 Output Total 740 Balance 4954 ICD10 Worksheet Patient Problems: Problems Problem Status Onset Arthritis of right knee Acute
--- NOTE | 2018-05-18 14:28 | PDMN ---
Medical Necessity Medical necessity: Change to inpt as of 05/18/18 @ 1414. Pt meets inpt criteria per MD order and [facility]-700, Knee Arthroplasty, Total. 67y/o s/p L TKA, POD #1, ext stay needed due to pain management issues and inability to work w/PT today sec to lt headedness, diaphoresis, and pain. Comorbid obesity, age>65. Anticipate>2MN for ongoing management of post-op TKA.
--- NOTE | 2018-05-18 15:40 | ASMTCMCOM ---
CM Note CM Note Notes: Pt s/p TKA, will d/c to friend's home in [place]. PT rec [facility], pt declines and states she will start outpatient PT in one week at [facility]. No CM d/c needs identified. CM available for changes/needs. Date Signed: 05/18/2018 03:39 PM Electronically Signed By:MELLISSA Ribeiro
[2018-05-18] MEDS: TOPIRAMATE 25 MG TAB PO SCH (20:49)
[2018-05-19] MEDS: oxyCODONE IR 5 MG TAB PO PRN (05:31)
[2018-05-19] MEDS: LEVOTHYROXINE 150 MCG TAB PO SCH (05:31)
[2018-05-19] MEDS: ASPIRIN 325 MG TAB PO SCH (09:28)
[2018-05-19] MEDS: ARIPiprazole 5 MG TAB PO SCH (09:28)
[2018-05-19] MEDS: CALCIUM CARBONATE 500 MG TAB PO SCH (09:28)
[2018-05-19] MEDS: ACETAMINOPHEN 325 MG TAB PO SCH ×3 (09:28→22:25)
[2018-05-19] MEDS: ASCORBIC ACID 500 MG TAB PO SCH (09:28)
[2018-05-19] MEDS: FAMOTIDINE 20 MG TAB PO SCH ×2 (09:29→22:25)
[2018-05-19] MEDS: SENNOSIDES/DOCUSATE SODIUM TAB PO SCH ×2 (09:29→22:24)
[2018-05-19] MEDS: HYDROCHLOROTHIAZIDE 25 MG TAB PO SCH (09:29)
[2018-05-19] MEDS: carBAMazepine ER 400 MG TAB PO SCH ×2 (09:29→22:27)
[2018-05-19] MEDS: VENLAFAXINE XR 150 MG CAP PO SCH ×2 (09:30→22:25)
[2018-05-19] MEDS: TOPIRAMATE 100 MG TAB PO SCH (09:30)
[2018-05-19] MEDS: TOPIRAMATE 25 MG TAB PO SCH (22:27)
[2018-05-20] MEDS: LEVOTHYROXINE 150 MCG TAB PO SCH (06:26)
[2018-05-20] MEDS: KETOROLAC 15 MG/1 ML SDV IVP PRN (10:04)
[2018-05-20] MEDS: ACETAMINOPHEN 325 MG TAB PO SCH (10:05)
[2018-05-20] MEDS: VENLAFAXINE XR 150 MG CAP PO SCH (10:05)
[2018-05-20] MEDS: ASPIRIN 325 MG TAB PO SCH (10:06)
[2018-05-20] MEDS: carBAMazepine ER 400 MG TAB PO SCH (10:06)
[2018-05-20] MEDS: CALCIUM CARBONATE 500 MG TAB PO SCH (10:06)
[2018-05-20] MEDS: ASCORBIC ACID 500 MG TAB PO SCH (10:06)
[2018-05-20] MEDS: ARIPiprazole 5 MG TAB PO SCH (10:07)
[2018-05-20] MEDS: TOPIRAMATE 100 MG TAB PO SCH (10:13)
[2018-05-20] MEDS: FAMOTIDINE 20 MG TAB PO SCH (10:13)
[2018-05-20] MEDS: SENNOSIDES/DOCUSATE SODIUM TAB PO SCH (10:13)
[2018-05-20] MEDS: HYDROCHLOROTHIAZIDE 25 MG TAB PO SCH (10:14)
[2018-05-20] MEDS: oxyCODONE IR 5 MG TAB PO PRN (10:22)
[2018-05-20 13:07] VITALS: BP 98/65
--- NOTE | 2018-05-20 14:45 | ASMTCMCOM ---
CM Note CM Note Notes: PT rec SNF, pt declines SNF and HHC. Pt to d/c to friend's home and has outpatient PT next week. Pt medically stable for d/c. No CM d/c needs identified Date Signed: 05/20/2018 02:45 PM Electronically Signed By:MELLISSA Ribeiro
== END 2018-05-20 14:32 | disposition home or self-care (01) | DRG 470 ==
LOC: F3N 10:02 → OBSVTOIN 05-18 14:14
PROVIDERS: ADMIT Orthopaedic Surgery; ATTEND Orthopaedic Surgery
PROC: 0SRD0J9 Replacement of Left Knee Joint with Synthetic Substitute, Cemented, Open Approach (ICD-10-PCS; principal; 2018-05-17 12:45)
DX: M17.12 Unilateral primary osteoarthritis, left knee (principal); Z96.651 Presence of right artificial knee joint; E03.9 Hypothyroidism, unspecified
CPT/HCPCS: 97110-GP; 97116-GP; 97162-GP; 97165-GO; 97530-GO; 97530-GP; 97535-GO; C1713; G0378; G8978-GP-CK; G8979-GP-CI; J1170; J1885; J2250; J2704; J3010

== ENCOUNTER → 2018-09-01 | Outpatient (CLI) | payer OTHER | LOC: FIMAGING 09:47 | PROVIDERS: ATTEND Family Medicine | DX: Z12.31 Encounter for screening mammogram for malignant neoplasm of breast (principal) ==